=== PATIENT | female | born 1970 | race African-American/Black ===

== ENCOUNTER 2017-03-19 22:05 | Emergency (ER) | payer OTHER ==
[2017-03-19] MEDS ORDERED: Acetaminophen 500 MG TAB ONE (22:35)
== END 2017-03-19 22:34 | disposition home or self-care (01) ==
LOC: SCSER 22:05
DX: J06.9 Acute upper respiratory infection, unspecified (principal); J45.909 Unspecified asthma, uncomplicated; K58.9 Irritable bowel syndrome, unspecified; G47.30 Sleep apnea, unspecified; F43.10 Post-traumatic stress disorder, unspecified; F41.9 Anxiety disorder, unspecified; F31.9 Bipolar disorder, unspecified; Z79.899 Other long term (current) drug therapy
CPT/HCPCS: 99283

== ENCOUNTER 2017-04-26 11:12 | Outpatient (CLI) | payer OTHER | END 2017-04-26 11:13 | disposition home or self-care (01) | LOC: BICMAMMO 11:12 | PROVIDERS: ATTEND Student in an Organized Health Care Education/Training Program | DX: Z12.31 Encounter for screening mammogram for malignant neoplasm of breast (principal); Z80.3 Family history of malignant neoplasm of breast | CPT/HCPCS: 77063; 77067 ==

== ENCOUNTER 2017-07-21 09:13 | Emergency (ER) | payer OTHER ==
[2017-07-21] MEDS ORDERED: Tenecteplase 50 MG - STEMI KIT ONE (09:43)
[2017-07-21] MEDS ORDERED: Ketorolac Tromethamine 60 MG/2 ML VIAL ONE (09:43)
== END 2017-07-21 10:28 | disposition home or self-care (01) ==
LOC: SCSER 09:13
DX: M54.12 Radiculopathy, cervical region (principal); J45.909 Unspecified asthma, uncomplicated; K58.9 Irritable bowel syndrome, unspecified; G47.30 Sleep apnea, unspecified; F43.10 Post-traumatic stress disorder, unspecified; F41.9 Anxiety disorder, unspecified; F31.9 Bipolar disorder, unspecified; Z79.899 Other long term (current) drug therapy
CPT/HCPCS: 96372; J1885; J3101

== ENCOUNTER 2017-09-17 20:30 | Outpatient (CLI) | payer OTHER | END 2017-09-17 20:31 | disposition home or self-care (01) | LOC: SLEEPLAB 20:30 | PROVIDERS: ATTEND Student in an Organized Health Care Education/Training Program | DX: G47.33 Obstructive sleep apnea (adult) (pediatric) (principal); G47.10 Hypersomnia, unspecified; F31.9 Bipolar disorder, unspecified; R06.83 Snoring; R53.83 Other fatigue | CPT/HCPCS: 95810 ==

== ENCOUNTER 2017-09-25 18:46 | Emergency (ER) | payer OTHER | END 2017-09-25 19:57 | disposition home or self-care (01) | LOC: SCSER 18:46 | DX: M54.2 Cervicalgia (principal); F43.10 Post-traumatic stress disorder, unspecified; F41.9 Anxiety disorder, unspecified; F31.9 Bipolar disorder, unspecified; J45.909 Unspecified asthma, uncomplicated; G47.30 Sleep apnea, unspecified; J42 Unspecified chronic bronchitis; K58.9 Irritable bowel syndrome, unspecified | CPT/HCPCS: 99283 ==

== ENCOUNTER 2017-09-27 19:30 | Outpatient (CLI) | payer OTHER | END 2017-09-27 19:31 | disposition home or self-care (01) | LOC: SLEEPLAB 19:30 | PROVIDERS: ATTEND Student in an Organized Health Care Education/Training Program | DX: G47.33 Obstructive sleep apnea (adult) (pediatric) (principal); G47.10 Hypersomnia, unspecified; R53.83 Other fatigue; F31.9 Bipolar disorder, unspecified; R06.83 Snoring | CPT/HCPCS: 95811 ==

== ENCOUNTER 2017-12-14 07:58 | Outpatient (CLI) | payer OTHER ==
--- NOTE | 2017-12-15 16:56 | EKG ---
Test Reason : Blood Pressure : / mmHG Vent. Rate : 076 BPM Atrial Rate : 076 BPM P-R Int : 146 ms QRS Dur : 080 ms QT Int : 394 ms P-R-T Axes : 038 013 026 degrees QTc Int : 443 ms Normal sinus rhythm Anterior infarct , age undetermined cannot be excluded Abnormal ECG Confirmed by MANJIT FLORES ([id number]) on 12/15/2017 4:56:09 PM Referred By: ROSENDO Confirmed By:MANJIT FLORES
== END 2017-12-14 07:59 | disposition home or self-care (01) ==
LOC: LABBT 07:58
PROVIDERS: ATTEND Surgery
DX: Z01.810 Encounter for preprocedural cardiovascular examination (principal); K76.0 Fatty (change of) liver, not elsewhere classified; K81.0 Acute cholecystitis
CPT/HCPCS: 93005; 93010

== ENCOUNTER 2017-12-16 07:23 | Day surgery (SDC) | payer OTHER ==
--- NOTE | 2017-12-13 15:48 | HP ---
HISTORY OF PRESENT ILLNESS: Radha Galvan is an 47-year-old female who is morbidly obese, 308 p ounds, 5 foot 11, 43 BMI, has episodic right upper quadrant pain with back radiation postprandial. S he has had a gallbladder ultrasound revealing fatty liver. HIDA scan ejection fraction, revealing 28 % gallbladder ejection fraction, which is below the low normal threshold of 33%. Injection reproduce d her symptoms. The patient has been referred by Juliet Sidhu PA-C, [facility] cholecystectomy and liver biopsy. Liver function tests have been obtained, but these results were not available at this time. Plan is for laparoscopic video cholecystectomy, core liver biopsy, risk of infection, bleeding, reoperation discussed, visceral injury, biliary injury, an d she consents. ALLERGIES: MORPHINE causes pruritus and dyspnea. TOBACCO: None. ALCOHOL: None. SOCIAL HISTORY: The patient is disabled, but she is , 2, para 2. PAST MEDICAL HISTORY: Bipolar illness followed by [facility], fatty liver, morbid obesity, chronic cholecy stitis, biliary dyskinesia without cholelithiasis, history of diverticulitis. She has had past colon oscopies and upper endoscopies. PAST SURGICAL HISTORY: Total abdominal hysterectomy, bilateral salpingo-oophorectomy for endometrios is, polycystic ovary bunion surgery, appendectomy, tonsillectomy, left shoulder surgery, left forearm keloid excision. REVIEW OF SYSTEMS: Ten point noncontributory. FAMILY HISTORY: Noncontributory. PHYSICAL EXAMINATION: HEENT: 308 pounds, 5 foot 11 inches, 43 BMI, 150/86, 85, 98.8 degrees. HEAD, EARS, EYES, NOSE AND THROAT: Unremarkable. LUNGS: Clear to auscultation. CARDIAC: Regular rate and rhythm without murmur or gallop. ABDOMEN: Soft, obese, nontender. EXTREMITIES: Unremarkable. ASSESSMENT AND PLAN: Biliary dyskinesia. PLAN: 1. Laparoscopic video cholecystectomy. Risk of infection, bleeding, visceral biliary injury extend inflamed. She consents. 2. Morbid obesity. 3. Fatty liver core biopsy. Plan as requested by Gastroenterology. The weight reduction, need was discussed. The patient has been educated on this and she will try this on her home. She has used ph entermine in the past. She has been down to 145 pounds and when she was younger gained weight loss d own to 280 to 260, but reports that she has problem with sugar, but has cut out sugar, does not drink carbonated beverages, was trying to lose weight on her own. 4. Bipolar illness. MEDICATIONS: Trileptal 600 mg a day, lamotrigine 200 mg twice a day, Geodon 40 mg twice a day, Intun iv 200 mg once a day, Xanax 2 mg 4 times a day, Bentyl 10 mg once a day, Linzess 10 mg once a day, Am jeffrey CR 12.5 mg at bedtime.
[2017-12-14 09:02] VITALS: BMI 41.8
[2017-12-16] MEDS ORDERED: Ketorolac Tromethamine 30 MG/ML VIAL ONE (07:52)
[2017-12-16] MEDS ORDERED: Levofloxacin 500 mg/D5W 100 ml Premix Bag ONE (07:53)
[2017-12-16] MEDS ORDERED: Bupivacaine HCl 0.5%/Epinephrine 1:200,000/PF 30 ml Vial ONE (10:11)
[2017-12-16] MEDS ORDERED: Midazolam HCl 2 mg/2 ml Vial ONE (10:13)
[2017-12-16] MEDS ORDERED: Fentanyl 250 MCG/5 ML VIAL ONE (10:13)
[2017-12-16] MEDS ORDERED: Promethazine HCl 25 MG/ML VIAL ONE (12:08)
[2017-12-16] MEDS ORDERED: Fentanyl 100 MCG/2 ML VIAL ONE (12:21)
--- NOTE | 2017-12-16 12:57 | OP ---
DATE OF PROCEDURE: 12/16/2017 PREOPERATIVE DIAGNOSES: Morbid obesity, fatty liver, cholecystitis, cholelithiasis, gallbladder slud ge. PROCEDURE: Laparoscopic video cholecystectomy, core liver biopsy right lobe. SURGEON: Rony Sanchez M.D. ANESTHESIA: General. Local 0.5% Marcaine with epinephrine 30 mL. PROCEDURE IN DETAIL: The patient was taken to the operating room where under general anesthesia, abd omen was prepared with ChloraPrep, draped in routine fashion. Because of an infraumbilical incision, a right mid clavicular subcostal incision made and pneumoperitoneum to 15 mmHg were obtained with th e Veress needle, replacing it with a 5 port laparoscope inserted. Right lateral subcostal incision m maribel and a 5 port placed. Subxiphoid incision made right and 11 mm port placed. The umbilical area w as free of adhesions and supraumbilical incision made and a 5 port placed. Video laparoscope moved t o this port. The fundus of gallbladder grasped and reflected cephalad. Omental adhesions and gallbl adder was taken down, omental adhesions to the liver was taken down using cautery hemostasis. Infund ibulum identified. Cystic artery and duct dissected free. Critical view obtained. Cystic artery an d duct doubly clipped proximally, divided, and gallbladder dissected free from liver bed obtaining go od hemostasis prior to division of final peritoneal attachments. Gallbladder and contents removed an d submitted to pathology. Core liver biopsies obtained with the core liver biopsy gun and submitted to Pathology. Good hemostasis obtained with the cautery. Irrigant and pneumoperitoneum evacuated. All this instruments removed and all skin incisions approximated with interrupted subdermal 4-0 Monoc ryl and DermaGlue applied.
== END 2017-12-16 14:03 | disposition home or self-care (01) ==
LOC: SDC 07:23
PROVIDERS: ATTEND Specialist
PROC: 0FB14ZX Excision of Right Lobe Liver, Percutaneous Endoscopic Approach, Diagnostic (ICD-10-PCS; principal; 2017-12-16)
PROC: 0FT44ZZ Resection of Gallbladder, Percutaneous Endoscopic Approach (ICD-10-PCS; principal; 2017-12-16)
DX: K81.1 Chronic cholecystitis (principal); K76.0 Fatty (change of) liver, not elsewhere classified; K21.9 Gastro-esophageal reflux disease without esophagitis; F31.9 Bipolar disorder, unspecified; F41.9 Anxiety disorder, unspecified; J45.909 Unspecified asthma, uncomplicated; E66.01 Morbid (severe) obesity due to excess calories; Z68.41 Body mass index [BMI] 40.0-44.9, adult; Z79.82 Long term (current) use of aspirin; Z79.899 Other long term (current) drug therapy; Z88.5 Allergy status to narcotic agent; Z98.890 Other specified postprocedural states
CPT/HCPCS: 88304; 88307; 88313; 96374; J0131; J0670; J1885; J1956; J2250; J2550; J3010

== ENCOUNTER 2018-01-18 16:04 | Outpatient (CLI) | payer OTHER ==
--- NOTE | 2018-01-18 19:01 | RAD ---
TWO VIEWS CHEST: 01/18/18 HISTORY: Right sided chest pain. PA and lateral views of the chest obtained on 01/18/18. Comparison made to previous exam from 10/31/15. Two views chest demonstrate an area of scarring in the left lung base. No evidence of acute intrathoracic abnormality seen. No significant evidence of hemo or pneumothorax seen. IMPRESSION: Area of scarring in the left lung base. No other acute intrathoracic abnormality seen. POS: [facility]
== END 2018-01-18 16:05 | disposition home or self-care (01) ==
LOC: BICRAD 16:04
PROVIDERS: ATTEND Specialist
DX: R07.9 Chest pain, unspecified (principal); J98.4 Other disorders of lung
CPT/HCPCS: 36415; 71046; 80053; 85025

== ENCOUNTER 2018-03-04 12:58 | Emergency (ER) | payer OTHER ==
--- NOTE | 2018-03-04 13:42 | RAD ---
RADIOGRAPH RIGHT FIFTH DIGIT 3 VIEWS: Date: 03/04/18 HISTORY: 47-year-old female status post acute blunt traumatic injury to fifth digit. FINDINGS: No fracture or dislocation. IMPRESSION: Negative. POS: [facility]
== END 2018-03-04 14:04 | disposition home or self-care (01) ==
LOC: SCSER 12:58
DX: S63.616A Unspecified sprain of right little finger, initial encounter (principal); J45.909 Unspecified asthma, uncomplicated; G47.30 Sleep apnea, unspecified; J42 Unspecified chronic bronchitis; K58.9 Irritable bowel syndrome, unspecified; F31.9 Bipolar disorder, unspecified; F41.9 Anxiety disorder, unspecified; Z79.899 Other long term (current) drug therapy; W23.0XXA Caught, crushed, jammed, or pinched between moving objects, initial encounter

== ENCOUNTER 2018-04-28 08:53 | Outpatient (CLI) | payer OTHER | END 2018-04-28 08:54 | disposition home or self-care (01) | LOC: BICMAMMO 08:53 | PROVIDERS: ATTEND Student in an Organized Health Care Education/Training Program | DX: Z12.31 Encounter for screening mammogram for malignant neoplasm of breast (principal); Z80.3 Family history of malignant neoplasm of breast | CPT/HCPCS: 77063; 77067 ==

== ENCOUNTER 2018-08-05 20:40 | Emergency (ER) | payer OTHER ==
[2018-08-05] MEDS ORDERED: Ketorolac Tromethamine 60 MG/2 ML VIAL ONE (21:20)
[2018-08-05] MEDS ORDERED: HYDROcodone/Acetaminophen 7.5/325 mg Tablet ONE (22:18)
--- NOTE | 2018-08-05 22:28 | RAD ---
THREE VIEWS RIGHT FOOT: 08/05/18 HISTORY: Pain. AP, lateral and oblique views right foot is obtained. Comparison made to a previous exam from 01/23/13. Images demonstrate a calcaneal bone spur. Some degenerative changes appear to be developing in the fi rst metacarpophalangeal joint. No evidence of acute fractures, subluxations, or bony lesions seen. IMPRESSION: No evidence of acute right foot fractures or bony lesions. POS: [facility]
== END 2018-08-05 22:26 | disposition home or self-care (01) ==
LOC: SCSER 20:40
DX: M79.671 Pain in right foot (principal); J45.909 Unspecified asthma, uncomplicated; G47.30 Sleep apnea, unspecified; F43.10 Post-traumatic stress disorder, unspecified; F31.9 Bipolar disorder, unspecified; Z79.899 Other long term (current) drug therapy
CPT/HCPCS: 96372; J1885

== ENCOUNTER 2019-03-31 22:25 | Emergency (ER) | payer OTHER ==
[~2019-03-31 22:25] MED LIST: Iopamidol 370 76% 100 ML VIAL ONE
[2019-03-31 23:07] LABS: #Basophils 0.1 thou/uL (0.0-0.2); #Eosinphils 0.1 thou/uL (0.0-0.7); #Lymphocytes 3.8 thou/uL (1.20-3.40); #Monocytes 0.8 thou/uL (0.11-0.59); #Neutrophils 4.1 thou/uL (1.40-6.50); %Basophils 0.8 % (0.0-1.0); %Eosinophils 1.1 % (0.0-10.0); %Lymphocytes 43.4 % (21.0-51.0); %Monocytes 8.5 % (0.0-10.0); %Neutrophils 46.1 % (42.0-75.0); Hemoglobin 12.8 g/dL (12.0-16.0); Mean Corpuscular HGB CONC 34.1 g/dL (32.0-36.0); Mean Corpuscular Hemoglobin 29.6 pg (27.0-31.0); Mean Platelet Volume 7.7 fL (7.4-10.4); Platelet Count 279 thou/uL (130-400); RBC Distribution Width 13.4 % (11.5-14.5); Red Blood Cell (RBC) Count 4.31 mill/uL (4.20-5.40); White Blood Cell (WBC) Count 8.8 thou/uL (4.8-10.8)
[2019-03-31 23:30] LABS: ALT (SGPT) 10 U/L (8-55); AST (SGOT) 15 U/L (5-34); Albumin 3.8 g/dL (3.5-5.0); Alkaline Phosphatase 118 U/L (40-110); Anion Gap 11 mmol/L (10-20); BUN (Urea Nitrogen) 12 mg/dL (7.0-18.7); Bilirubin, Total 0.3 mg/dL (0.2-1.2); Calc. Creatinine Clearance 0 mL/min (70-130); Calcium 9.2 mg/dL (7.8-10.44); Carbon Dioxide 25 mmol/L (22-29); Chloride 109 mmol/L (98-107); Estimated GFR-MDRD 66; Globulin 3.3 g/dL (2.4-3.5); Glucose 111 mg/dL (70-105); Lipase 27 U/L (8-78); Potassium 3.6 mmol/L (3.5-5.1); Protein, Total 7.1 g/dL (6.0-8.3); Sodium 141 mmol/L (136-145)
[2019-03-31] MEDS ORDERED: Ondansetron PF 4 MG/2 ML Vial ONE (23:34)
--- NOTE | 2019-03-31 23:58 | CT ---
CT OF THE ABDOMEN AND PELVIS WITH IV CONTRAST INDICATION: Right-sided abdominal pain and cramping; history of cholecystectomy, appendectomy and hys terectomy COMPARISON: February 01, 2016 FINDINGS: ABDOMEN: Lung bases: Clear Liver: No focal lesion. Gallbladder: Surgically absent Pancreas: Normal. Adrenal glands: Normal. Spleen: Normal. Kidneys and ureters: Normal. No hydronephrosis. Vasculature: Normal. Lymph nodes:No lymphadenopathy. Free fluid in abdomen:No free fluid is evident. PELVIS: Small and large bowel: Colonic diverticulosis without evidence of active diverticulitis. Appendix:Not visualized; reportedly surgically absent Bladder: Normal. Rectal and perirectal soft tissues:Normal. Reproductive structures: Surgically absent Free fluid in pelvis: No free fluid is evident. Lymphadenopathy pelvis: No lymphadenopathy is evident. Osseous structures: No acute osseous abnormality. No destructive osteolytic or osteoblastic lesion i s identified. There is scattered degenerative and osteoarthritic changes. Soft tissues:Normal. IMPRESSION: 1. No acute abnormality.
[2019-04-01 00:47] LABS: Bacteria/HPF None Seen HPF (None Seen); Bilirubin Negative (Negative); Blood, Urine Negative (Negative); Clarity Clear (Clear); Glucose, Urine (Dipstick) Normal (Negative); Leukocyte 250 Leu/uL (Negative); Nitrite Negative (Negative); Protein, Urine (Dipstick) Negative (Neg-Trace); RBC/HPF 0-3 HPF (0-3); Urobilinogen Normal mg/dL (Less than 2)
[2019-04-01 00:48] LABS: Pregnancy Test - Urine (BHCG) Negative (Negative); Pregu Control Background? CLEAR/WHITE (CLR/WHITE); Pregu Control Bar Appear? YES (CONTROL BAR); Specific Gravity 1.049 (1.002-1.036)
== END 2019-04-01 01:05 | disposition home or self-care (01) ==
LOC: ERS 22:25
DX: R10.31 Right lower quadrant pain (principal); R11.0 Nausea; J42 Unspecified chronic bronchitis; F41.9 Anxiety disorder, unspecified; F31.9 Bipolar disorder, unspecified; F43.10 Post-traumatic stress disorder, unspecified; K58.9 Irritable bowel syndrome, unspecified; G47.30 Sleep apnea, unspecified; J45.909 Unspecified asthma, uncomplicated; Z79.899 Other long term (current) drug therapy
CPT/HCPCS: 36415; 74177; 80053; 81003; 81015; 81025; 83690; 85025; 96361; 96374; J2405; Q9967

== ENCOUNTER 2019-05-09 12:00 | Outpatient (CLI) | payer OTHER ==
--- NOTE | 2019-05-09 13:38 | MMO ---
Bilateral MAMMO Bilat Screen DDI. CLINICAL HISTORY: Patient is 48 years old and is seen for screening. The patient has no family history of breast cancer. The patient has no personal history of cancer. VIEWS: The views performed were: bilateral craniocaudal and bilateral mediolateral oblique. FILMS COMPARED: The present examination has been compared to prior imaging studies performed at [facility] on 03/19/2015, 04/08/2016, 04/26/2017 and 04/28/2018. This study has been interpreted with the assistance of computer-aided detection. MAMMOGRAM FINDINGS: There are scattered fibroglandular densities. There are no suspicious masses, suspicious calcifications, or new areas of architectural distortion. IMPRESSION: THERE IS NO MAMMOGRAPHIC EVIDENCE OF MALIGNANCY. A ROUTINE FOLLOW-UP MAMMOGRAM IN 1 YEAR IS RECOMMENDED. ACR BI-RADS Category 1 - Negative MAMMOGRAPHY NOTE: 1. A negative mammogram report should not delay a biopsy if a dominant of clinically suspicious mass is present. 2. Approximately 10% to 15% of breast cancers are not detected by mammography. 3. Adenosis and dense breasts may obscure an underlying neoplasm. Reported by: VON GRAMAJO MD Electonically Signed: [id number]
== END 2019-05-09 12:01 | disposition home or self-care (01) ==
LOC: BICMAMMO 12:00
PROVIDERS: ATTEND Student in an Organized Health Care Education/Training Program
DX: Z12.31 Encounter for screening mammogram for malignant neoplasm of breast (principal)
CPT/HCPCS: 77067

== ENCOUNTER 2020-05-12 08:23 | Outpatient (CLI) | payer OTHER ==
--- NOTE | 2020-05-12 08:56 | MMO ---
Bilateral MAMMO Bilat Screen DDI. CLINICAL HISTORY: Patient is 49 years old and is seen for screening. The patient has no family history of breast cancer. The patient has no personal history of cancer. VIEWS: The views performed were: bilateral craniocaudal and bilateral mediolateral oblique. FILMS COMPARED: The present examination has been compared to prior imaging studies performed at [facility] on 04/08/2016, 04/26/2017, 04/28/2018 and 05/09/2019. This study has been interpreted with the assistance of computer-aided detection. MAMMOGRAM FINDINGS: There are scattered fibroglandular densities. There are several stable intramammary lymph nodes seen in the left breast. There are no suspicious masses, suspicious calcifications, or new areas of architectural distortion. IMPRESSION: THERE IS NO MAMMOGRAPHIC EVIDENCE OF MALIGNANCY. A ROUTINE FOLLOW-UP MAMMOGRAM IN 1 YEAR IS RECOMMENDED. ACR BI-RADS Category 2 - Benign finding MAMMOGRAPHY NOTE: 1. A negative mammogram report should not delay a biopsy if a dominant of clinically suspicious mass is present. 2. Approximately 10% to 15% of breast cancers are not detected by mammography. 3. Adenosis and dense breasts may obscure an underlying neoplasm. Reported by: VON GRAMAJO MD Electonically Signed: [id number]
== END 2020-05-12 08:24 | disposition home or self-care (01) ==
LOC: BICMAMMO 08:23
PROVIDERS: ATTEND Student in an Organized Health Care Education/Training Program
DX: Z12.31 Encounter for screening mammogram for malignant neoplasm of breast (principal)
CPT/HCPCS: 77067

== ENCOUNTER 2021-05-25 08:35 | Outpatient (CLI) | payer OTHER | END 2021-05-25 08:36 | disposition home or self-care (01) | LOC: BICMAMMO 08:35 | PROVIDERS: ATTEND Student in an Organized Health Care Education/Training Program | DX: Z12.31 Encounter for screening mammogram for malignant neoplasm of breast (principal) | CPT/HCPCS: 77063; 77067 ==

== ENCOUNTER 2022-06-30 08:33 | Outpatient (CLI) | payer OTHER | END 2022-06-30 08:34 | disposition home or self-care (01) | LOC: BICMAMMO 08:33 | PROVIDERS: ATTEND Student in an Organized Health Care Education/Training Program | DX: Z12.31 Encounter for screening mammogram for malignant neoplasm of breast (principal) | CPT/HCPCS: 77067 ==

== ENCOUNTER 2022-12-11 22:01 | Emergency (ER) | payer OTHER ==
[2022-12-11] MEDS ORDERED: Ketorolac Tromethamine 30 MG/ML VIAL ONE (23:23)
== END 2022-12-11 23:40 | disposition home or self-care (01) ==
LOC: ERS 22:01
DX: K64.9 Unspecified hemorrhoids (principal)
CPT/HCPCS: 82274; 96372; 99283; J1885

== ENCOUNTER 2023-01-05 14:13 | Outpatient (CLI) | payer OTHER | END 2023-01-05 14:14 | disposition home or self-care (01) | LOC: BICULT 14:13 | PROVIDERS: ATTEND Student in an Organized Health Care Education/Training Program | DX: M79.89 Other specified soft tissue disorders (principal) | CPT/HCPCS: 76999 ==